=== PATIENT | male | born 1975 | race African-American/Black ===

== ENCOUNTER 2023-11-18 09:00 | Emergency (ER) | payer MEDICAID, OTHER ==
[~2023-11-18] VITALS: Ht 185.4 cm; Wt 87.0 kg
[2023-11-18 09:03] VITALS: O2SAT 96
[2023-11-18 09:19] LABS: DIFFERENTIAL COMMENT 0; HEMATOCRIT. 40.8 % (42.0-52.0); HEMOGLOBIN. 14.7 g/dL (14.0-18.0); LYMPHOCYTES % 13.5 % (20.0-50.0); MEAN CORPUSCULAR HEMOGLOBIN 31.4 pg (28.0-32.0); MEAN CORPUSCULAR VOLUME 87.3 fL (80.0-94.0); MEAN PLATELET VOLUME 8.8 fl (7.4-10.4); MONOCYTES % 9.3 % (2.0-8.0); NEUTROPHILS % 71.2 % (40.0-76.0); PLATELET 227 x1000/uL (130-400); RED BLOOD CELL COUNT 4.68 mill/uL (4.7-6.1); WHITE BLOOD COUNT 10.3 x1000/uL (4.5-11.0)
[2023-11-18 09:36] LABS: ALANINE AMINOTRANSFERASE 11 IU/L (10-49); ALBUMIN 4.2 g/dL (3.2-4.8); ASPARTATE AMINOTRANSFERASE 18 IU/L (<34); BILIRUBIN TOTAL 1.3 mg/dL (0.1-1.0); CALCIUM 8.9 mg/dL (8.7-10.4); CARBON DIOXIDE 22 mEq/L (21-32); CHLORIDE 107 mEq/L (98-107); GLUCOSE 119 mg/dL (70-105); POTASSIUM 3.2 mEq/L (3.5-5.1); PROTEIN TOTAL 7.7 g/dL (6.0-8.3); SODIUM 135 mEq/L (136-145); TROPONIN I HIGH SENSITIVITY 14 ng/L (3.0-53); UREA NITROGEN BLOOD 8 mg/dL (9-23)
[2023-11-18 09:58] LABS: PARTIAL THROMBOPLASTIN TIME 26.5 sec (23.4-31.0); PROTHROMBIN TIME 11.6 sec (9.6-11.0)
[2023-11-18] MEDS: PANTOPRAZOLE SODIUM 40 MG/VIAL IV ONE (10:16)
[2023-11-18] MEDS: ONDANSETRON HCL 4MG/2ML INJ IV ONE (10:16)
[2023-11-18] MEDS: KCL 20MEQ/100ML PREMIX 100 ML IV ONE (10:58)
[2023-11-18] MEDS: AZITHROMYCIN 500MG/250ML 250 ML IV STA (11:17)
[2023-11-18] MEDS: CEFTRIAXONE 2GM/50ML 50 ML IV ONE (11:30)
[2023-11-18 12:05] VITALS: TEMP 98.7
[2023-11-18 12:56] LABS: CLARITY URINE CLEAR (CLEAR); COLOR URINE DARK YELLOW (YELLOW); GLUCOSE URINE NEGATIVE (NEGATIVE); KETONES URINE TRACE (NEGATIVE); LEUKOCYTE ESTERASE URINE TRACE (NEGATIVE); NITRITE URINE NEGATIVE (NEGATIVE); OCCULT BLOOD URINE NEGATIVE (NEGATIVE); PH URINE 5.5 (4.5-8.0); PROTEIN URINE 1+ (NEGATIVE); SPECIFIC GRAVITY URINE 1.029 (1.005-1.030)
[2023-11-18 13:07] LABS: MUCUS URINE 3+ /lpf (NONE/TRACE); SQUAMOUS EPITHELIAL CELL URINE 1+ /lpf (RARE/1+)
[2023-11-18 13:09] LABS: CALCIUM OXALATE CRYSTALS URINE 1+ /lpf; WBC URINE 0-2 /hpf (0-2)
[2023-11-18 13:10] LABS: BACTERIA URINE TRACE; RBC URINE NONE SEEN /hpf (0-2)
[2023-11-18 13:45] LABS: TROPONIN I HIGH SENSITIVITY 16 ng/L (3.0-53)
[2023-11-18] MEDS: SODIUM CHLORIDE 0.9% 1,000 ML IV SCH (14:30)
[2023-11-18] MEDS ORDERED: CLONIDINE 0.1MG TABLET PO PRN (14:30)
[2023-11-18] MEDS ORDERED: DIPHENHYDRAMINE 50MG/ML VIAL IV PRN (14:30)
[2023-11-18] MEDS ORDERED: MORPHINE SULFATE 2 MG/ML CPJ (NOT FOR IM USE) IV PRN (14:30)
[2023-11-18] MEDS ORDERED: ACETAMINOPHEN 325MG TABLET PO PRN (14:30)
[2023-11-18] MEDS ORDERED: AZITHROMYCIN 500 MG in DEXT 5% WATER 250 ML IV SCH (14:30)
[2023-11-18] MEDS ORDERED: IPRATROPIUM/ALBUTEROL 0.5-3(2.5)MG/3ML NEB HHN PRN (14:30)
[2023-11-18] MEDS ORDERED: ONDANSETRON HCL 4MG/2ML INJ IV PRN (14:30)
[2023-11-18] MEDS ORDERED: NALOXONE HCL 0.4MG/ML VIAL IV PRN (14:45)
[2023-11-18 15:22] VITALS: BP 126/81; PULSE 90; RESP 17
[2023-11-19] MEDS ORDERED: CEFTRIAXONE 1GM/50ML 50 ML IV SCH (08:00)
[2023-11-19] MEDS ORDERED: AZITHROMYCIN 500MG/250ML 250 ML IV SCH (09:00)
== END 2023-11-18 16:00 | disposition left against medical advice (07) ==
LOC: ER 09:00 → EDBEDREQ 09:49 → EDBEDREQTM 11:25 → EDBEDREQ 11:25 → CANBEDREQ 15:52 → ER 16:00
DX: M54.9 Dorsalgia, unspecified (principal); I51.7 Cardiomegaly; R07.9 Chest pain, unspecified; R11.0 Nausea; J18.9 Pneumonia, unspecified organism; E87.6 Hypokalemia; Z20.822 Contact with and (suspected) exposure to COVID-19
CPT/HCPCS: 80053; 81003; 83880; 83690; 85025; 85610; 85730; 84484; 87804 ×2; 36415; 71045; 93970; 76705; 93005; 96368; 96365; 96366; 99285; 87426; J0456; J0696; J2405; C9113; J3480; Z7610 ×3